=== PATIENT | female | born 1955 | race Caucasian/White ===

== ENCOUNTER 2017-12-12 06:49 | Day surgery (SDC) | payer BC ==
[~2017-12-12] VITALS: Ht 172.7 cm; Wt 59.0 kg
[~2017-12-12 06:49] MED LIST: ADVAIR 100/501 DISK IH; AMITIZA24 MICROGR PO; BENICAR HCT 401 EAC1 PO; FIBER THERAPY0.52 GM PO; FISH OIL 1,0001 EA12 PO; FLEXERIL10 MG PO; LEXAPRO20 MG PO; PROVENTIL,2.5 MG/3 M IH; SINGULAIR10 MG PO; STOOL SOFTENER100 MG PO; VIMOVO 500-201 EAC1 PO; XANAX0.25 MG PO; ZANTAC300 MG PO; ZYRTEC10 M3 PO
[2017-12-12 07:28] VITALS: BP 131/70
[2017-12-12 12:30] VITALS: BP 129/61
[2017-12-12 13:45] VITALS: BP 133/60
== END 2017-12-12 13:50 | disposition home or self-care (01) ==
LOC: SDC 06:49
DX: M47.22 Other spondylosis with radiculopathy, cervical region (principal); M53.2X2 Spinal instabilities, cervical region; Z98.1 Arthrodesis status; I10 Essential (primary) hypertension; K21.9 Gastro-esophageal reflux disease without esophagitis
CPT/HCPCS: 72040; 76000; C1713; J0330; J0690; J1100; J1170; J2405; J2710; J7643; Q0175